=== PATIENT | female | born 1960 | race Caucasian/White ===

== ENCOUNTER → 2018-10-23 | Outpatient (CLI) | payer OTHER ==
[~2018-10-23] MED LIST: ALBU18HF INH; PROP40TA PO; losartan PO; symbicort INH
[2018-10-23 12:20] LABS: ALBUMIN 4.2 g/dL (3.4-5.0); ANION GAP 6 mmol/L (5-15); CALCIUM 10.6 mg/dL (8.5-10.1); CHLORIDE 105 mmol/L (98-107)
[2018-10-23 12:24] LABS: ALANINE AMINOTRANSFERASE 29 U/L (12-78); ALKALINE PHOSPHATASE 106 U/L (45-117); BILIRUBIN,TOTAL 0.5 mg/dL (0.2-1.0); TOTAL PROTEIN 7.8 g/dL (6.4-8.2)
== END | disposition home or self-care (01) ==
LOC: STAR 11:12
PROVIDERS: ATTEND Surgery
DX: Z01.818 Encounter for other preprocedural examination (principal)
CPT/HCPCS: 36415; 80053

== ENCOUNTER 2018-11-02 10:37 | Day surgery (SDC) | payer OTHER ==
[2018-10-23 11:38] VITALS: BP 127/81
[~2018-11-02] VITALS: Ht 170.2 cm; Wt 46.0 kg
[~2018-11-02 10:37] MED LIST changes: +BUPIVACAINE/PF-EPI 0.5% 1:200K ONE; +FENTANYL PF 250 MCG/5ML ONE; +MIDAZOLAM 1 MG/ML, 2ML ONE
[2018-11-02] MEDS ORDERED: LACTATED RINGERS 1,000 ML IV SCH (11:05)
[2018-11-02 11:08] VITALS: BP 127/81
[2018-11-02] MEDS ORDERED: FENTANYL PF 250 MCG/5ML ONE (12:48)
[2018-11-02] MEDS ORDERED: ONDANSETRON 2MG/ML, 2ML ONE (12:48)
[2018-11-02] MEDS ORDERED: GLYCOPYRROLATE 0.2MG/1ML, 5ML ONE (12:48)
[2018-11-02] MEDS ORDERED: ROCURONIUM 10MG/ML,5ML ONE (12:48)
[2018-11-02] MEDS ORDERED: CEFAZOLIN 1,000 MG ONE (12:48)
[2018-11-02] MEDS ORDERED: DEXAMETHASONE 4 MG/ML, 1ML ONE (12:48)
[2018-11-02] MEDS ORDERED: EPINEPHRINE 1 MG/ML, 1ML ONE (12:48)
[2018-11-02] MEDS ORDERED: NEOSTIGMINE 1 MG/ML, 10ML ONE (12:48)
[2018-11-02] MEDS ORDERED: PROPOFOL 10 MG/ML, 20ML ONE (12:48)
[2018-11-02 14:17] LABS: 10MIN %DROP IOPTH 97 %; 5MIN %DROP IOPTH 96 %; IOPTH BASELINE 1413 pg/mL; SAMPLE 5 %DROP IOPTH 99 %
[2018-11-02] MEDS ORDERED: OXYcodone 5 MG/5 ML ORAL.SOL UDC ONE (14:35)
[2018-11-02] MEDS ORDERED: MEPERIDINE/PF 25MG/0.5ML IVPush PRN (15:00)
[2018-11-02] MEDS ORDERED: FENTANYL PF 100 MCG/2ML IV PRN (15:00)
[2018-11-02] MEDS ORDERED: hydrALAzine 20 MG/ML, 1ML IV PRN (15:00)
[2018-11-02] MEDS ORDERED: ONDANSETRON ODT 8 MG PO PRN (15:00)
[2018-11-02] MEDS ORDERED: OXYcodone 5 MG/5 ML ORAL.SOL UDC PO PRN (15:00)
[2018-11-02] MEDS ORDERED: ONDANSETRON 2MG/ML, 2ML IV PRN (15:00)
[2018-11-02] MEDS ORDERED: HYDROmorphone 2 MG/ML, 1ML IVPush PRN (15:00)
[2018-11-02] MEDS ORDERED: DIAZEPAM 5 MG/ML, 2ML IVPush PRN (15:00)
[2018-11-02] MEDS ORDERED: ACETAMINOPHEN 325 MG TABLET PO PRN (15:00)
[2018-11-02] MEDS ORDERED: LABETALOL 5MG/ML, 20ML IV PRN (15:00)
== END 2018-11-02 16:35 | disposition home or self-care (01) ==
LOC: OUT 10:37
PROVIDERS: ATTEND Surgery
DX: E21.0 Primary hyperparathyroidism (principal); E03.9 Hypothyroidism, unspecified; I10 Essential (primary) hypertension; Z87.39 Personal history of other diseases of the musculoskeletal system and connective tissue; Z98.890 Other specified postprocedural states; Z72.89 Other problems related to lifestyle; Z87.891 Personal history of nicotine dependence; Z88.1 Allergy status to other antibiotic agents
CPT/HCPCS: 36415; 60500; 83970; 88305; C1760; J0171; J0690; J1100; J2250; J2405; J2704; J2710; J3010; J3490; J7120